=== PATIENT | female | born 1985 | race African-American/Black ===

== ENCOUNTER → 2019-01-04 | Outpatient (CLI) | payer OTHER ==
--- NOTE | 2019-01-04 12:24 | PCVCIMAG ---
APPROVED REPORT Study performed: 01/04/2019 11:00:58 Exam: Stress Echocardiogram Indication: Chest pain, abn ekg, renal failure Patient Location: Echo lab Stress Nurse: Carolyn Zhou RN Status: routine Ht: 5 ft 4 in HR: 90 bpm BP: 126/90 mmHg Rhythm: NSR Procedure The patient underwent an Exercise Stress Test using the Tank Protocol. Blood pressure, heart rate, and EKG were monitored. An Echocardiogram was performed by supply chain technician in four stages in quad fashion. At peak stress, four selected images were obtained and placed side by side with resting images for comparison. Stress Test Details Stress Test: Exercise stress testing was performed using a Tank protocol. HR Resting HR: 106 bpmMax Heart Rate (APMHR): 186 bpm Max HR Achieved: 169 bpmTarget HR (85% APMHR): 158 bpm % of APMHR: 90 Recovery HR: 105 bpm HR response to stress: Normal HR response to stress BP Resting BP: 126/90 mmHg Max BP: 160/100 mmHg Recovery BP: 132/86 mmHg BP response to stress: Normal blood pressure response to stress. ECG Resting ECG: Sinus Rhythm, LVH with repolarization changes Stress ECG: Sinus Rhythm, LVH with repolarization changes ST Change: Normal Maximum ST Deviation: 0 mm Arrhythmia: None Recovery ECG: Sinus Rhythm, LVH with repolarization changes Recovery ST Change: Normal Recovery ST Deviation: 0 mm Recovery Arrhythmia: None Clinical Reason for Termination: Maximal effort Stress Symptoms: Dyspnea Exercise duration: 8 min 46 sec Highest Stage Achieved: Stage 3: 3.4 mph at 14% grade. Exercise capacity: 10.1 METs Overall Exercise Capacity for Age: Normal Scale: Sedentary Angina Score: None Stress ECG Conclusion Clinical: Non-ischemic ECG: Non-ischemic [place] Treadmill Score is 8.0 which is Low risk. Pre-Stress Echo The resting Echocardiogram showed normal left ventricular contractility with an estimated Ejection Fraction of about >55%. Normal wall motion in all segments on baseline images. Post-Stress Echo The stress Echocardiogram showed normal left ventricular contractility with an estimated Ejection Fraction of about 65%. Normal augmentation of wall motion in all segments on post stress images. Clinical No clinical or ECG evidence for ischemia. Conclusion Clinical Response: Non-ischemic Exercise Capacity: Average Stress ECG Response: Non-ischemic Stress Echo Images: Non-ischemic The left ventricle is normal in size and increased wall thickness in both the rest and stress images. Normal stress echocardiogram with maximal exercise stress. Mild concentric LVH is present. Other Information Study Quality: Adequate <Conclusion> The left ventricle is normal in size and increased wall thickness in both the rest and stress images. Normal stress echocardiogram with maximal exercise stress. Mild concentric LVH is present.
== END | disposition home or self-care (01) ==
LOC: PCVCIMAG 10:57
PROVIDERS: ATTEND Internal Medicine
DX: R07.9 Chest pain, unspecified (principal); R94.31 Abnormal electrocardiogram [ECG] [EKG]; N19 Unspecified kidney failure
CPT/HCPCS: 93325; 93351